=== PATIENT | male | born 1995 | race Caucasian/White ===

== ENCOUNTER 2017-01-08 13:40 | Emergency (ER) | payer OTHER ==
[~2017-01-08] VITALS: Ht 182.9 cm; Wt 61.2 kg
[~2017-01-08 13:40] MED LIST: AUGMENTIN 500M500 MG PO
--- NOTE | 2017-01-08 14:23 | ED ANKLE/FOOT INJURY COMPLAINT ---
History of Present Illness General Chief Complaint: Foot or Ankle Injury Stated Complaint: PER PT "I ROLLED MY FOOT YES NOW SWOLLEN" Source: patient, family, old records Exam Limitations: no limitations Vital Signs & Intake/Output Vital Signs & Intake/Output Vital Signs Date Time Temp Pulse Resp B/P B/P Pulse O2 O2 Flow FiO2 Mean Ox Delivery Rate 01/08 1353 98.4 82 18 115/72 98 Room Air Allergies Coded Allergies: MDX - Strawberries (Strawberries) (Intermediate, HIVES 08/30/12) Reconcile Medications Augmentin (Augmentin 500-125 Tablet) 500 MG-125 MG TABLET 1 TAB PO BID SINUSITIS Ibuprofen 600 MG TABLET 1 TAB PO Q6PRN PRN pain with food Tramadol HCl (Ultram) 50 MG TABLET 1-2 TAB PO Q6PRN PRN severe pain Triage Note: 21 YO MALE TO ER C/O ROLLING R FOOT WHILE WALKING THROUGH THE [employer], STATES HE WOKE UP THIS AM AND HIS FOOT WAS SWOLLEN. Triage Nurses Notes Reviewed? yes Occurred: yesterday Duration: hour(s):, constant, continues in ED Timing: recent history Severity: moderate Pain/Injury Location: Left: Foot. Method of Injury: twisted No Modifying Factors: none Associated Symptoms: swelling, GCS 15 since, stiffness HPI: 1 day prior to admission patient was walking the [employer] and twisted his left foot. Today he complains of continued pain swelling difficulty ambulating. He denies fever chills nausea vomiting diarrhea abdominal pain chest pain shortness breath headache dysuria rash bleeding other injury. Past History Travel History Traveled to [place] past 21 day No Medical History Any Pertinent Medical History? 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 No Review of Systems Review of Systems Constitutional: Reports: no symptoms. EENTM: Reports: no symptoms. Respiratory: Reports: no symptoms. Cardiovascular: Reports: no symptoms. GI: Reports: no symptoms. Genitourinary: Reports: no symptoms. Musculoskeletal: Reports: see HPI, joint pain. Skin: Reports: no symptoms. Neurological/Psychological: Reports: no symptoms. Hematologic/Endocrine: Reports: no symptoms. Immunologic/Allergic: Reports: no symptoms. All Other Systems: Reviewed and Negative Physical Exam Physical Exam General Appearance: well developed/nourished, alert, awake, anxious, mild distress Head: atraumatic Eyes: Bilateral: PERRL, EOMI. Ears, Nose, Throat: normal pharynx, normal ENT inspection, hearing grossly normal Neck: normal inspection, supple Cardiovascular/Respiratory: regular rate/rhythm Back: normal inspection Leg/Knee/Thigh Left: normal range of motion, normal inspection Leg/Knee/Thigh Right: normal range of motion, normal inspection Ankle Left: normal inspection, normal range of motion Ankle Right: normal inspection, normal range of motion Foot Left: limited range of motion, soft tissue tenderness Foot Right: normal inspection, normal range of motion Reflexes: 2+: knee (R), knee (L), ankle (R), ankle (L). Neuro/Vascular: normal motor function, normal sensation Tendon: normal tendon function Psychiatric: awake, alert, oriented x 3 Skin: intact, normal color, warm/dry Progress Differential Diagnosis: fracture, sprain, contusion Plan of Care: Orders Procedure Date/time Status XRY-FOOT COMPLETE, LEFT 01/08 1411 Active Diagnostic Imaging: Viewed by Me: Radiology Read. Discussed w/RAD: Radiology Read. Radiology Impression: no acute abnormality, no fracture, no dislocation, no foreign body seen Departure Departure Time of Disposition: 1442 Disposition: HOME OR SELF CARE Condition: Stable Clinical Impression Primary Impression: Sprain of foot, left Qualifiers: Encounter type: initial encounter Qualified Code: S93.602A - Unspecified sprain of left foot, initial encounter Referrals: RONAL SANFORD,LILIAN Rubin (PCP/Family) Departure Forms: Customer Survey General Discharge Information Prescriptions: Current Visit Scripts Ibuprofen 1 TAB PO Q6PRN PRN pain #50 TAB with food Tramadol HCl (Ultram) 1-2 TAB PO Q6PRN PRN severe pain #30 TAB
--- NOTE | 2017-01-08 14:26 | RADIOLOGY REPORT ---
EXAMINATION: XR FOOT, LEFT CLINICAL INFORMATION: Pain; question fracture. COMPARISON: None TECHNIQUE: AP, lateral, and oblique views of the left foot. FINDINGS: The bones and soft tissues are normal. No fracture. Alignment is anatomic. Joint spaces are maintained. IMPRESSION: Normal left foot.
[2017-01-08] MEDS ORDERED: IBUPROFEN600 M1 PO (14:43)
[2017-01-08] MEDS ORDERED: ULTRAM50 M1 PO (14:43)
[2017-01-08 15:03] VITALS: BP 124/74
== END 2017-01-08 15:03 ==
LOC: ERH 13:40
DX: S93.602A Unspecified sprain of left foot, initial encounter (principal); X58.XXXA Exposure to other specified factors, initial encounter; Y93.01 Activity, walking, marching and hiking; Y92.9 Unspecified place or not applicable
CPT/HCPCS: 73630-LT

== ENCOUNTER 2017-07-02 18:53 | Emergency (ER) | payer OTHER ==
[~2017-07-02] VITALS: Ht 182.9 cm; Wt 61.2 kg
[~2017-07-02 18:53] MED LIST changes: +IBUPROFEN600 M1 PO; +ULTRAM50 M1 PO
--- NOTE | 2017-07-02 19:53 | ED GENERAL ADULT ---
History of Present Illness General Chief Complaint: General Adult Stated Complaint: "ALOT OF THINGS GOING ON WITH HIM" PER MOM Source: patient, family, old records Exam Limitations: no limitations Vital Signs & Intake/Output Vital Signs & Intake/Output Vital Signs Date Time Temp Pulse Resp B/P B/P Pulse O2 O2 Flow FiO2 Mean Ox Delivery Rate 07/02 2046 Room Air 07/02 2022 99 07/02 1920 96.1 89 18 143/70 99 Room Air Allergies Coded Allergies: strawberry (HIVES 07/02/17) Reconcile Medications Amoxicillin 875 MG TABLET 1 TAB PO BID bronchitis Codeine Phosphate/Guaifenesi (Cheratussin AC Syrup) 10 MG-100 MG/5 ML LIQUID 5 -10 ML PO Q4-6P PRN cough Ibuprofen 600 MG TABLET 1 TAB PO Q6PRN PRN pain with food Core Measure Meds Pre-Hospital antibiotics Triage Note: PT TO ER WITH MULTIPLE MEDICAL COMPLAINTS. WAS SEEN AT WALK-IN ON FRIDAY AND DIAGNOSED WITH ACUTE BRONCHITIS, GIVEN Z-PACK AND PREDNISONE. TOOK FOR 3 DAYS AND DISCONTINUED SECONDARY TO SIDE EFFECTS (GI UPSET) BEGAN TODAY WITH LEFT SIDED CHEST PAIN, INTERMITTENT SOB, JOINT ACHES AND RIGHT FOOT NUMBNESS Triage Nurses Notes Reviewed? yes Onset: Last week Duration: day(s):, constant, continues in ED Timing: recent history Injury Environment: home Severity: moderate No Modifying Factors: none Associated Symptoms: cough, chest pain HPI: 5 days prior to admission patient complains of productive cough of green sputum nasal congestion chills right foot pain. He was seen at walk-in prescribed Zithromax prednisone and albuterol MDI. He stopped the Zithromax and prednisone secondary to nausea vomiting stomach upset insomnia. He presents with continued cough congestion now with chest pain with cough and worsening right foot pain. He reports the foot pain began after some scratches to the top of his foot. He denies fever chills shortness of breath headache dysuria bleeding. Past History Travel History Traveled to [place] past 21 day No Medical History Any Pertinent Medical History? 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 No Review of Systems Review of Systems Constitutional: Reports: see HPI, malaise. EENTM: Reports: see HPI, nasal congestion. Respiratory: Reports: see HPI, cough, sputum production. Cardiovascular: Reports: see HPI, chest pain. GI: Reports: see HPI, abdominal pain, nausea, vomiting. Genitourinary: Reports: no symptoms. Musculoskeletal: Reports: no symptoms. Skin: Reports: no symptoms. Neurological/Psychological: Reports: no symptoms. Hematologic/Endocrine: Reports: no symptoms. Immunologic/Allergic: Reports: no symptoms. All Other Systems: Reviewed and Negative Physical Exam Physical Exam General Appearance: well developed/nourished, alert, awake, anxious, mild distress Head: atraumatic, normal appearance Eyes: Bilateral: normal appearance, PERRL, EOMI. Ears, Nose, Throat: normal pharynx, normal ENT inspection, hearing grossly normal Neck: normal inspection, supple, full range of motion, no midline tenderness Respiratory: chest non-tender, no respiratory distress, quiet respiration, lungs clear, decreased breath sounds, rhonchi Cardiovascular: regular rate/rhythm, normal peripheral pulses, norml femoral pulses equa Peripheral Pulses: 4+ carotid (R), 4+ carotid (L) Gastrointestinal: normal bowel sounds, soft, non-tender, no organomegaly Back: normal inspection, normal range of motion Extremities: normal inspection, normal capillary refill, normal range of motion, no edema Neurologic/Psych: no motor/sensory deficits, awake, alert, oriented x 3, normal gait, normal mood/affect, 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 Skin: intact, warm/dry, rash, dorsum of right foot with erythema surrounding 3 linear abrasions tender to touch Lymphatic: adenopathy Core Measures ACS in differential dx? No CVA/TIA Diagnosis: No Sepsis Present: No Sepsis Focused Exam Completed? No Progress Differential Diagnoses I considered the following diagnoses in my evaluation of the patient: Bronchitis sinusitis cellulitis pneumonia Plan of Care: Orders Procedure Date/time Status TROPONIN LEVEL 07/02 1941 Complete MAGNESIUM 07/02 1941 Complete LIPASE 07/02 1941 Complete D-DIMER 07/02 1941 Complete COMPREHENSIVE METABOLIC PANEL 07/02 1941 Complete CBC WITHOUT DIFFERENTIAL 07/02 1941 Complete EKG 07/02 1921 Active Current Medications Sig/Maged Start time Last Medication Dose Stop Time Status Admin Amoxicillin 750 MG ONCE ONE 07/02 2129 UNVr (Amoxil) 07/02 2130 Ibuprofen 600 MG ONCE ONE 07/02 2129 UNVr (Motrin) 07/02 2130 Laboratory Tests 07/02/17 2016: Anion Gap 12, Estimated GFR > 60, BUN/Creatinine Ratio 22.0, Glucose 97, Calcium 9.7, Magnesium 2.0, Total Bilirubin 0.4, AST 24, ALT 36, Alkaline Phosphatase 83 , Troponin I < 0.01, Total Protein 7.0, Albumin 4.5, Globulin 2.5, Albumin/ Globulin Ratio 1.8, Lipase 100, D-Dimer High Sensitivty < 200, CBC w Diff NO MAN DIFF REQ, RBC 4.75, MCV 88.8, MCH 30.1, RDW 12.3, MPV 8.7, Gran % 64.1, Lymphocytes % 29.8, Monocytes % 4.4, Eosinophils % 1.4, Basophils % 0.3, Absolute Granulocytes 7.1 H, Absolute Lymphocytes 3.3, Absolute Monocytes 0.5, Absolute Eosinophils 0.2, Absolute Basophils 0, PUBS MCHC 33.9 Diagnostic Imaging: Viewed by Me: Radiology Read. Discussed w/RAD: Radiology Read. Radiology Impression: no acute abnormality Initial ED EKG: RBBB Rhythm Strip: normal sinus rhythm Departure Departure Time of Disposition: 2121 Disposition: HOME OR SELF CARE Condition: Stable Clinical Impression Primary Impression: Bronchitis, acute, with bronchospasm Secondary Impressions: Cellulitis Referrals: Unknown (PCP/Family) Departure Forms: Customer Survey General Discharge Information RELEASE- WORK Prescriptions: Current Visit Scripts Amoxicillin 1 TAB PO BID #20 TAB Ibuprofen 1 TAB PO Q6PRN PRN pain #50 TAB with food Codeine Phosphate/Guaifenesi (Cheratussin AC Syrup) 5-10 ML PO Q4-6P PRN cough #240 ML Critical Care Note Critical Care Note Critical Care Time: non-applicable
[2017-07-02 20:34] LABS: ABSOLUTE BASOPHIL COUNT 0 /CUMM (0.0-0.2); ABSOLUTE EOSINOPHIL COUNT 0.2 /CUMM (0.0-0.7); ABSOLUTE GRANULOCYTE CT 7.1 /CUMM (1.4-6.5); ABSOLUTE LYMPH COUNT 3.3 /CUMM (1.2-3.4); ABSOLUTE MONOCYTE COUNT 0.5 /CUMM (0.10-0.60); BASOPHIL % 0.3 % (0.0-2.0); EOSINOPHIL % 1.4 % (0-5); HEMATOCRIT 42.1 % (42-52); MEAN CORPUSCULAR HGB 30.1 PG (27.0-31.0); MEAN CORPUSCULAR HGB CONC 33.9 G/DL (33.0-37.0); MEAN CORPUSCULAR VOLUME 88.8 FL (80.0-94.0); MEAN PLATELET VOLUME 8.7 FL (7.4-10.4); PLATELET COUNT 214 /CUMM (130-400); RBC DISTRIBUTION WIDTH 12.3 % (11.5-14.5); RED BLOOD CELL CT 4.75 /CUMM (4.70-6.10); WHITE BLOOD CELL COUNT 11.1 /CUMM (4.8-10.8)
--- NOTE | 2017-07-02 20:34 | RADIOLOGY REPORT ---
EXAMINATION: XR CHEST CLINICAL INFORMATION: Cough, chest pain COMPARISON: Chest x-ray 03/28/2015 TECHNIQUE: 2 views of the chest were obtained. FINDINGS: No significant abnormality is noted involving the heart, lungs, mediastinum, bony thorax or soft tissues. IMPRESSION: Unremarkable examination.
[2017-07-02 20:35] LABS: GRANULOCYTE % 64.1 % (42.2-75.2)
[2017-07-02] MEDS ORDERED: AMOXICILLIN875 M1 PO (21:24)
[2017-07-02] MEDS ORDERED: IBUPROFEN600 M1 PO (21:24)
[2017-07-02] MEDS ORDERED: CHERATUSSIN AC118 M1 PO (21:25)
[2017-07-02 21:54] VITALS: BP 133/74
== END 2017-07-02 21:55 ==
LOC: ERH 18:53
PROVIDERS: Emergency Medicine
DX: J20.9 Acute bronchitis, unspecified (principal); L03.115 Cellulitis of right lower limb; R07.9 Chest pain, unspecified
CPT/HCPCS: 1263; 71046; 93005; 93010